=== PATIENT | female | born 1975 | race Hispanic/Latino ===

== ENCOUNTER → 2023-04-05 08:29 | Outpatient (CLI) | payer OTHER, SELFPAY ==
--- NOTE | ~2023-04-05 | US_ITS ---
Pelvic ultrasound. Clinical History: Menorrhagia Technique: Realtime transabdominal scanning of the pelvis was performed. Color flow Doppler and Doppl er spectral analysis were performed. Findings: The uterus is anteverted. The endometrial stripe has a thickness of 7 mm. No focal mass is identified. The right ovary measures 2.9 x 1.7 x 2.2 cm. No significant right ovarian or adnexal mass is seen. The left ovary measures 2.7 x 1.8 x 2.6 cm. No significant left ovarian or adnexal mass is seen. There is no evidence of free fluid in the cul de sac. Impression: Unremarkable pelvic ultrasound. Reviewed, dictated and finalized at location . EL TRAFFIC OFFICER Impression: Unremarkable pelvic ultrasound.
== END ==
PROVIDERS: PCP Nurse Practitioner; Visit Provider Nurse Practitioner
DX: N92.0 Excessive and frequent menstruation with regular cycle (principal)
CPT/HCPCS: 76856

== ENCOUNTER 2023-04-24 12:16 | Outpatient (CLI) | payer OTHER, SELFPAY ==
--- NOTE | ~2023-04-24 | MR_ITS ---
EXAMINATION: MR breast BI wo/w con INDICATION: Left nipple discharge TECHNIQUE: Axial VIBRANT pre and dynamic post contrast, Sagittal VIBRANT post contrast, Axial T2 STIR ASSET COMPARISON: None CONTRAST: Multihance, 10 cc BREAST COMPOSITION: Heterogeneous fibroglandular tissue FINDINGS: RIGHT BREAST: There is mild to moderate background parenchymal enhancement. No suspicious enhancement is present after contrast administration. No pathologically enlarged axillary or internal mammary ly mph nodes are identified. LEFT BREAST: There is mild to moderate background parenchymal enhancement. No suspicious enhancement is present after contrast administration. No pathologically enlarged axillary or internal mammary lym ph nodes are identified. IMPRESSION: No suspicious abnormality seen. BI-RADS Category 1: Negative Reviewed, dictated and finalized at location .
== END 2023-04-24 12:17 | disposition home or self-care (01) ==
PROVIDERS: PCP Nurse Practitioner; Visit Provider Surgery
DX: N64.52 Nipple discharge (principal); R92.343 Mammographic extreme density, bilateral breasts; Z98.890 Other specified postprocedural states
CPT/HCPCS: 77049; A9577; C8908

== ENCOUNTER 2023-05-07 15:26 | Outpatient (CLI) | payer OTHER, SELFPAY ==
[2023-05-07 15:46] LABS: Basophils Percent Auto 0.3 % (0.2-1.2); Eosinophils Absolute Auto 0.2 K/mm3 (0-0.3); Eosinophils Percent Auto 2.1 % (0-4.4); Hematocrit 38.5 % (37.0-47.0); Immature Granulocyte Absolute 0.02 K/mm3 (0.00-0.031); Immature Granulocyte Percent A 0.2 % (0-0.5); Lymphocytes Absolute Auto 1.69 K/mm3 (0.9-3.2); Lymphocytes Percent Auto 19.6 % (18.3-44.2); Mean Corpuscular HGB Conc 31.2 g/dl (32-36); Mean Corpuscular Hemoglobin 27.3 pg (26-34); Mean Corpuscular Volume 87.5 fl (80-100); Mean Platelet Volume 11.7 fl (7.4-10.4); Monocytes Absolute Auto 0.7 K/mm3 (0.1-0.6); Monocytes Percent Auto 7.7 % (2.6-8.5); Neutrophils Percent Auto 70.1 % (45.5-73.1); Platelet Count Result 264 k/mm3 (150-375); Red Cell Distribution Width 14.4 % (11.5-14.5); White Blood Count 8.6 K/mm3 (4.5-10.0)
[2023-05-07 16:48] LABS: Iron 57 ug/dL (37-170)
[2023-05-07 16:57] LABS: Percent Iron Saturation 13 % (20-50)
[2023-05-07 17:19] LABS: Alanine Aminotransferase 14 U/L (6-35); Albumin Level 4.4 g/dL (3.5-5.1); Alkaline Phosphatase 90 U/L (38-126); Anion Gap 7 mmol/L (8-16); Aspartate Amino Transferase 26 U/L (14-36); Bilirubin,Total 0.4 mg/dL (0.2-1.3); Blood Urea Nitrogen 15 mg/dL (7-17); Calcium 9.6 mg/dL (8.4-10.2); Carbon Dioxide 27 mmol/L (22-30); Chloride 103 mmol/L (98-107); Estimated Glomerular Filt Rate > 60; Glucose 109 mg/dL (65-110); Lactate Dehydrogenase 142 U/L (120-246); Potassium 3.8 mmol/L (3.4-5.0); Sodium 137 mmol/L (137-145)
[2023-05-07 17:24] LABS: Ferritin 6.05 ng/mL (6.24-137)
[2023-05-07 18:26] LABS: Folic Acid 19.1 ng/mL (2.76->20)
[2023-05-10 10:44] LABS: Methylmalonic Acid 492 nmol/L (87-318)
[2023-05-14 12:38] LABS: Soluble Transferrin Receptor 1.57 mg/L (0.76-1.76)
== END 2023-05-07 15:27 | disposition home or self-care (01) ==
LOC: ANHLAB 15:28
PROVIDERS: Nurse Practitioner Family; PCP Nurse Practitioner; Visit Provider Internal Medicine Hematology & Oncology
DX: D50.0 Iron deficiency anemia secondary to blood loss (chronic) (principal)
CPT/HCPCS: 36415; 80053; 82607; 82728; 82746; 83540; 83550; 83615; 83921; 84238; 85025

== ENCOUNTER 2023-09-10 10:34 | Outpatient (CLI) | payer OTHER, SELFPAY ==
[2023-09-10 10:54] LABS: Basophils Percent Auto 0.4 % (0.2-1.2); Eosinophils Absolute Auto 0.1 K/mm3 (0-0.3); Eosinophils Percent Auto 1.3 % (0-4.4); Hematocrit 37.6 % (37.0-47.0); Hemoglobin 11.7 g/dL (12.0-15.0); Immature Granulocyte Absolute 0.02 K/mm3 (0.00-0.031); Immature Granulocyte Percent A 0.2 % (0-0.5); Lymphocytes Absolute Auto 1.52 K/mm3 (0.9-3.2); Lymphocytes Percent Auto 16.5 % (18.3-44.2); Mean Corpuscular HGB Conc 31.1 g/dl (32-36); Mean Corpuscular Hemoglobin 28.7 pg (26-34); Mean Corpuscular Volume 92.2 fl (80-100); Mean Platelet Volume 11.4 fl (7.4-10.4); Monocytes Absolute Auto 0.8 K/mm3 (0.1-0.6); Monocytes Percent Auto 8.5 % (2.6-8.5); Neutrophils Absolute Auto 6.7 K/mm3 (1.3-6.7); Neutrophils Percent Auto 73.1 % (45.5-73.1); Platelet Count Result 235 k/mm3 (150-375); Red Blood Count 4.08 M/mm3 (4.2-5.4); Red Cell Distribution Width 13.2 % (11.5-14.5); White Blood Count 9.2 K/mm3 (4.5-10.0)
[2023-09-10 11:51] LABS: Anion Gap 6 mmol/L (4-12); Blood Urea Nitrogen 13 mg/dL (7-17); Carbon Dioxide 30 mmol/L (22-30); Chloride 102 mmol/L (98-107); Estimated Glomerular Filt Rate > 60; Glucose 86 mg/dL (65-110); Potassium 4.4 mmol/L (3.4-5.0); Sodium 138 mmol/L (137-145)
[2023-09-10 13:17] LABS: Iron 77 ug/dL (37-170)
[2023-09-10 13:32] LABS: Percent Iron Saturation 20 % (20-50)
== END 2023-09-10 10:35 | disposition home or self-care (01) ==
LOC: ANHLAB 10:36
PROVIDERS: PCP Nurse Practitioner; Visit Provider Nurse Practitioner Family
DX: D50.0 Iron deficiency anemia secondary to blood loss (chronic) (principal)
CPT/HCPCS: 36415; 80048; 82607; 82728; 83540; 83550; 85025

== ENCOUNTER 2024-01-20 09:59 | Outpatient (CLI) | payer OTHER, SELFPAY ==
[2024-01-20 10:28] LABS: Basophils Percent Auto 0.4 % (0.2-1.2); Eosinophils Absolute Auto 0.1 K/mm3 (0-0.3); Eosinophils Percent Auto 0.8 % (0-4.4); Hemoglobin 11.6 g/dL (12.0-15.0); Immature Granulocyte Absolute 0.04 K/mm3 (0.00-0.031); Immature Granulocyte Percent A 0.4 % (0-0.5); Lymphocytes Absolute Auto 1.51 K/mm3 (0.9-3.2); Lymphocytes Percent Auto 15.5 % (18.3-44.2); Mean Corpuscular HGB Conc 31.4 g/dl (32-36); Mean Corpuscular Hemoglobin 27.6 pg (26-34); Mean Corpuscular Volume 88.1 fl (80-100); Mean Platelet Volume 11.2 fl (7.4-10.4); Monocytes Absolute Auto 0.8 K/mm3 (0.1-0.6); Monocytes Percent Auto 8.5 % (2.6-8.5); Neutrophils Absolute Auto 7.3 K/mm3 (1.3-6.7); Neutrophils Percent Auto 74.4 % (45.5-73.1); Platelet Count Result 251 k/mm3 (150-375); Red Cell Distribution Width 13.4 % (11.5-14.5); White Blood Count 9.8 K/mm3 (4.5-10.0)
[2024-01-20 11:59] LABS: Iron 57 ug/dL (37-170)
[2024-01-20 12:03] LABS: Anion Gap 3 mmol/L (4-12); Blood Urea Nitrogen 13 mg/dL (7-17); Calcium 9.3 mg/dL (8.4-10.2); Carbon Dioxide 31 mmol/L (22-30); Chloride 104 mmol/L (98-107); Estimated Glomerular Filt Rate > 60; Glucose 94 mg/dL (65-110); Potassium 4.5 mmol/L (3.4-5.0); Sodium 138 mmol/L (137-145)
[2024-01-20 12:09] LABS: Percent Iron Saturation 15 % (20-50)
[2024-01-20 12:36] LABS: Ferritin 7.92 ng/mL (6.24-137)
[2024-01-20 13:12] LABS: Folic Acid 15.8 ng/mL (2.76->20)
== END 2024-01-20 10:00 | disposition home or self-care (01) ==
LOC: ANHLAB 10:00
PROVIDERS: PCP Nurse Practitioner; Visit Provider Internal Medicine Hematology & Oncology
DX: D50.0 Iron deficiency anemia secondary to blood loss (chronic) (principal)
CPT/HCPCS: 36415; 80048; 82607; 82728; 82746; 83540; 83550; 85025

== ENCOUNTER 2024-05-25 09:06 | Outpatient (CLI) | payer OTHER, SELFPAY ==
[2024-05-25 09:35] LABS: Hematocrit 33.9 % (37.0-47.0); Hemoglobin 10.8 g/dL (12.0-15.0); Mean Corpuscular HGB Conc 31.9 g/dl (32-36); Mean Corpuscular Volume 87.8 fl (80-100); Platelet Count Result 240 k/mm3 (150-375); Red Blood Count 3.86 M/mm3 (4.2-5.4); Red Cell Distribution Width 14.1 % (11.5-14.5); White Blood Count 7.5 K/mm3 (4.5-10.0)
--- OUTSIDE RECORDS SUMMARY | 2024-05-25 09:48 | XMS_ITS | Clinical Summary ---
Author Organization [facility] Jayro shaffer [facility] Address [address] [place] [address] [place] [address] Care Team Providers Care Security Test Engineer Name Role Phone Antonia Ahuja MD Primary Care Provider Allergies No known active allergies Medications sertraline (ZOLOFT) 100 mg tablet Take 150 mg by mouth daily. 12/21/2021 Active rosuvastatin (CRESTOR) 40 mg tablet Take 40 mg by mouth daily. Active traZODone (DESYREL) 50 mg tablet Take 50 mg by mouth daily at bedtime. 12/21/2021 Active multivitamin (DAILY-TANNER) tablet Take 1 Tablet by mouth daily. Active ferrous fumarate 89 mg (29 mg iron) Tablet Take 89 mg by mouth daily. Active CYANOCOBALAMIN, VITAMIN B-12, ORAL Take by mouth. Active progesterone micronized (PROMETRIUM) 100 mg Capsule Take 300 mg by mouth daily at bedtime. Active Active Problems Problem Noted Date Diagnosed Date Iron deficiency anemia 05/07/2023 Encounters Date Type Department Care Team Description 05/06/2024 External Device Data [facility] ABSTRACTION Provider, Abstract 04/29/2024 External Device Data [facility] ABSTRACTION Provider, Abstract 04/28/2024 External Device Data [facility] ABSTRACTION Provider, Abstract 04/25/2024 External Device Data [facility] ABSTRACTION Provider, Abstract 04/24/2024 External Device Data [facility] ABSTRACTION Provider, Abstract 04/22/2024 External Device Data [facility] ABSTRACTION Provider, Abstract 04/08/2024 External Device Data [facility] ABSTRACTION Provider, Abstract from Last 3 Months Family History Medical History Relation Name Comments No Known Problems Brother 1 No Known Problems Brother 2 No Known Problems Child 1 No Known Problems Child 2 Skin Cancer Father Diabetes Mother Hypertension Mother No Known Problems Sister 1 No Known Problems Sister 2 No Known Problems Sister 3 Relation Name Status Comments Brother 1 Alive Brother 2 Alive Child 1 Alive Child 2 Alive Father Alive Mother Alive Sister 1 Alive Sister 2 Alive Sister 3 Alive Social History Tobacco Use Types Packs/Day Years Used Date Smoking Tobacco: Never Smokeless Tobacco: Never Tobacco Cessation:Counseling Given: Not Answered Alcohol Use Standard Drinks/Week Comments Yes 0 (1 standard drink = 0.6 oz pur e alcohol) Socially Comments Unknown Sex and Gender Information Value Date Recorded Sex Assigned at Not on file Legal Sex Female 12:16 PM CDT Gender Identity Not on file Sexual Orientation Not on file Last Filed Vital Signs Vital Sign Reading Time Taken Comments Blood Pressure 121/73 01/24/2024 9:12 AM HUSBANDRY PERSON Pulse 66 01/24/2024 9:12 AM HUSBANDRY PERSON Temperature 36.6 C (97.8 F) 01/24/2024 9:12 AM HUSBANDRY PERSON Respiratory Rate 16 01/24/2024 9:12 AM HUSBANDRY PERSON Oxygen Saturation 97% 01/24/2024 9:12 AM HUSBANDRY PERSON Inhaled Oxygen Concentration - - Weight 56.7 kg (125 lb) 01/24/2024 9:12 AM HUSBANDRY PERSON Height 152.4 cm (5') 05/07/2023 2:43 PM CDT Body Mass Index 24.41 05/07/2023 2:43 PM CDT Plan of Treatment Upcoming Encounters Date Type Department Care Team (Late st Contact Info) Description 05/29/2024 9:30 AM CDT Office Visit [facility] Oncology and Hematology - [facility] [address] [facility] [address] [place] [address] Jovanny Prescott MD [address] [facility] [address] [place] [address] Health Maintenance Due Date Last Done Comments HEPATITIS B VACCINES (1 of 3 - 19+ 3-dose series) 08/19 HPV/Cotest (21-29) 09/10/1996 CERVICAL CANCER SCREENING 09/10/2005 HPV/Cotest (30-65) 09/10/2005 PAP SMEAR 09/10/2005 BREAST CANCER SCREENING 2015 COLORECTAL SCREENING 09/10/2020 Colorectal Cancer Screening 09/10/2020 FIT-DNA Q 3 years 09/10/2020 FIT/FOBT Q 1 year 09/10/2020 Flex Sig/CT Colonography Q 5 years 09/10/2020 INFLUENZA VACCINE (#1) 2023 12/05/2017 Preventative Visit- Commercial 02/19/2024 DTAP/TDAP/TD VACCINES (2 - Td or Tdap) 01/03/2028 [place] [address] Care Teams Security Test Engineer Relationship Specialty Start Date End Date Antonia Ahuja MD PCP - General Internal Medicine 05/07/23
--- OUTSIDE RECORDS SUMMARY | 2024-05-25 09:48 | XMS_ITS | Encounter Summary ---
Author Organization [facility] Address [address] [place] [address] Care Team Providers Care Contact Center Director Name Role Phone Unavailable Primary Care Provider Unavailabl e Prior Encounters Date Type Department Care Team Description 11/05/2023 Travel 11/05/2023 4:00 PM CDT Office Visit [facility] [address] [place] [phone] Lupis Daniel DMD 10/14/2023 11:00 AM CDT Office Visit [facility] [address] [place] [phone] Lupis Daniel DMD 10/09/2023 Travel 10/09/2023 1:00 PM CDT Office Visit [facility] [address] [place] [phone] Lupis Daniel, KAMRAN Encounter for dental examination and cleaning without abnormal findings (Primary Dx) 01/03/2022 2:00 PM CASE FINISHING MACHINE ADJUSTER Office Visit [facility] [address] [place] [address] Jo-Ann Hayes RDH 01/03/2022 2:00 PM CASE FINISHING MACHINE ADJUSTER Office Visit [facility] [address] [place] [phone] Hailee Lewis DDS 06/12/2021 1:00 PM CDT Office Visit [facility] [address] [place] [address] Toshia Wellington DMD 06/12/2021 1:00 PM CDT Office Visit [facility] [address] [place] [address] Jo-Ann Hayes, [facility] 12/12/2020 Travel 12/12/2020 1:00 PM CDT Office Visit [facility] [address] [place] [address] oTshia Wellington, DMD 12/05/2020 Travel 12/05/2020 1:00 PM CDT Office Visit [facility] [address] [place] [address] Toshia Wellington, DMD 12/05/2020 1:00 PM CDT Office Visit [facility] [address] [place] [address] [address] 03/09/2019 Converted CPS Chart Documents [facility] [address] [place] [address] <No scans attached> 03/09/2019 Converted 13x Documents [facility] [address] [place] [address] <No scans attached> Last Filed Vital Signs Vital Sign Reading Time Taken Comments Blood Pressure 114/72 10/14/2023 11:13 AM CDT Pulse 63 01/03/2022 2:24 PM CASE FINISHING MACHINE ADJUSTER Temperature 36.1 C (97 F) 12/05/2020 1:03 PM CDT Respiratory Rate - - Oxygen Saturation - - Inhaled Oxygen Concentration - - Weight - - Height - - Body Mass Index - - Plan of Treatment Not on file Procedures Procedure Name Priority Date/Time Associated Diagnosis Comments 3 CORE BUILDUP, INCLUDING ANY PINS WHEN REQUIRED Routine 11/05/2023 4:00 PM CDT 2 CORE BUILDUP, INCLUDING ANY PINS WHEN REQUIRED Routine 11/05/2023 4:00 PM CDT 1 O RESIN-BASED COMPOSITE - ONE SURFACE, POSTERIOR Routine 11/05/2023 4:00 PM CDT 14 MO RESIN-BASED COMPOSITE - TWO SURFACES, POSTERIOR Routine 10/14/2023 11:00 AM CDT NEW PATIENT TOPICAL APPLICATION OF FLUORIDE VARNISH Routine 10/09/2023 1:00 PM CDT ORAL HYGIENE INSTRUCTIONS Routine 2023 1:00 PM CDT PROPHYLAXIS - ADULT Routine 10/09/2023 1 :00 PM CDT Encounter for dental examination and cleaning without abnormal findings INTRAORAL PHOTO Routine 10/09/2023 1:00 PM CDT INTRAORAL PHOTO Routine 10/09/2023 1:00 PM CDT INTRAORAL PHOTO Routine 10/09/2023 1:00 PM CDT PANORAMIC RADIOGRAPHIC IMAGE Routine 10/09/2023 1:00 PM CDT COMPREHENSIVE ORAL EVALUATION - NEW OR ESTABLISHED PATIENT Routine 10/09/2023 1:00 PM CDT Encounter for dental examination and cleaning without abnormal findings INTRAORAL PHOTO Routine 10/09/2023 1:00 PM CDT INTRAORAL - COMPREHENSIVE SERIES OF RADIOGRAPHIC IMAGES Routine 10/09/2023 1:00 PM CDT 3 ROOT CANAL Routine 10/09/2023 12:00 AM CDT PROPHYLAXIS - ADULT Routine 01/03/2022 2 :00 PM CASE FINISHING MACHINE ADJUSTER TOPICAL APPLICATION OF FLUORIDE VARNISH Routine 01/03/2022 2:00 PM CASE FINISHING MACHINE ADJUSTER ORAL HYGIENE INSTRUCTIONS Routine 2021 2:00 PM CASE FINISHING MACHINE ADJUSTER PERIODIC ORAL EVALUATION - ESTABLISHED PATIENT Routine 01/03/2022 2:00 PM CASE FINISHING MACHINE ADJUSTER 1 LO AMALGAM FILLING Routine 01/03/2022 12:00 AM CASE FINISHING MACHINE ADJUSTER 2 LO AMALGAM FILLING Routine 01/03/2022 12:00 AM CASE FINISHING MACHINE ADJUSTER 7 L AMALGAM FILLING Routine 01/03/2022 1 2:00 AM CASE FINISHING MACHINE ADJUSTER 14 LO AMALGAM FILLING Routine 01/03/2022 12:00 AM CASE FINISHING MACHINE ADJUSTER 16 O AMALGAM FILLING Routine 01/03/2022 12:00 AM CASE FINISHING MACHINE ADJUSTER 32 O AMALGAM FILLING Routine 01/03/2022 12:00 AM CASE FINISHING MACHINE ADJUSTER 31 ISSA AMALGAM FILLING Routine 01/03/2022 12:00 AM CASE FINISHING MACHINE ADJUSTER 28 O AMALGAM FILLING Routine 01/03/2022 12:00 AM CASE FINISHING MACHINE ADJUSTER 5 MO AMALGAM FILLING Routine 01/03/2022 12:00 AM CASE FINISHING MACHINE ADJUSTER 18 ISSA AMALGAM FILLING Routine 01/03/2022 12:00 AM CASE FINISHING MACHINE ADJUSTER 19 ISSA AMALGAM FILLING Routine 01/03/2022 12:00 AM CASE FINISHING MACHINE ADJUSTER PERIODIC ORAL EVALUATION - ESTABLISHED PATIENT Routine 06/12/2021 1:00 PM CDT BITEWINGS - FOUR RADIOGRAPHIC IMAGES Routine 06/12/2021 1:00 PM CDT TOPICAL APPLICATION OF FLUORIDE VARNISH Routine 06/12/2021 1:00 PM CDT ORAL HYGIENE INSTRUCTIONS Routine 2021 1:00 PM CDT PROPHYLAXIS - ADULT Routine 06/12/2021 1 :00 PM CDT 15 CERECFIRED CROWNPOST Routine 12/13/19 1:00 PM CDT PERIODIC ORAL EVALUATION - ESTABLISHED PATIENT Routine 12/05/2020 1:00 PM CDT TOPICAL APPLICATION OF FLUORIDE VARNISH Routine 12/05/2020 1:00 PM CDT ORAL HYGIENE INSTRUCTIONS Routine 2020 1:00 PM CDT PROPHYLAXIS - ADULT Routine 12/05/2020 1:00 PM CDT INTRAORAL - COMPREHENSIVE SERIES OF RADIOGRAPHIC IMAGES Routine 06/07/2020 2:00 AM CDT COMPREHENSIVE ORAL EVALUATION - NEW OR ESTABLISHED PATIENT Routine 06/07/2020 2:00 AM CDT INTRAORAL PHOTO Routine 06/07/2020 2:00 AM CDT INTRAORAL PHOTO Routine 06/07/2020 2:00 AM CDT INTRAORAL PHOTO Routine 06/07/2020 2:00 AM CDT INTRAORAL PHOTO Routine 06/07/2020 2:00 AM CDT SCALING IN PRESENCE OF GENERALIZED MODERATE OR SEVERE GINGIVAL INFLAMMATION Routine 06/07/2020 2:00 AM CDT ORAL HYGIENE INSTRUCTIONS Routine 2020 2:00 AM CDT TOPICAL APPLICATION OF FLUORIDE VARNISH Routine 06/07/2020 2:00 AM CDT 30 EXTRACTION, ERUPTED TOOTH REQUIRING REMOVAL OF BONE AND/OR SECTIONING OF TOOTH Routine 12/24/2019 2:00 AM CASE FINISHING MACHINE ADJUSTER 30 LIMITED ORAL EVALUATION - PROBLEM FOCUSED Routine 12/09/2019 2:00 AM CDT PANORAMIC RADIOGRAPHIC IMAGE Routine 12/09/2019 2:00 AM CDT ADDITIONAL X-RAY Routine 12/09/2019 2:00 AM CDT SINGLE X-RAY Routine 12/09/2019 2:00 AM CDT Visit Diagnoses Diagnosis Start Date Encounter for dental examination and cleaning without abnormal findings 10/09/2023 Insurance * Guarantor: Denia Russell Account Type Relation to Patient Date of Phone Billing Address Personal/Family Self 1975 [id number] [facility] [address]
--- OUTSIDE RECORDS SUMMARY | 2024-05-25 09:48 | XMS_ITS | Clinical Summary ---
Author Organization [facility] Care Team Providers Care Buhr Mill Operator Name Role Phone Unavailable Primary Care Provider Unavailabl e Social History Tobacco Use Types Packs/Day Years Used Date Smoking Tobacco: Never Assessed Comments Unknown Sex and Gender Information Value Date Recorded Sex Assigned at Not on file Legal Sex Female 9:00 AM PAIN MANAGEMENT NURSE Gender Identity Not on file Sexual Orientation Not on file Plan of Treatment Health Maintenance Due Date Last Done Comments Hepatitis C Virus (HCV) Screening 1975 Hepatitis B Immunization (1 of 3 - 19+ 3-dose series) 09/10/1994 Pap Smear 09/10/1996 Cervical Cancer Screening (CCS) 09/10/2005 HPV/Cotest 09/10/2005 Discussion re Starting/Frequ ency of Mammograms 2015 Colonoscopy 09/10/2020 Colorectal Cancer Screening 09/10/2020 Influenza Immunization (#1) 2023 12/05/2017 SARS-COV-2 Immunization ( season) 2023 Respiratory Syncytial Virus (RSV) Immunization (Adult) (1 - 1-dose 75+ series) 09/10/2050 DTaP/Tdap/Td Immunization Discontinued 01/02/2018 TdaP Immunization Completed 01/02/2018 Meningococcal Immunization (ACWY) Aged Out No longer eligible based on patient's age to complete this topic Pneumococcal Immunization Combined Aged Out No longer eligible b ased on patient's age to complete this topic Rotavirus Immunization Aged Out No lo nger eligible based on patient's age to complete this topic
--- OUTSIDE RECORDS SUMMARY | 2024-05-25 09:48 | XMS_ITS | Clinical Summary ---
Author Organization [facility] Address [address] [place] [address] Care Team Providers Care Thermostat Machine Tender Name Role Phone Unavailable Primary Care Provider Unavailabl e Allergies No known active allergies Medications sertraline (ZOLOFT) 25 mg tablet Take 25 mg by mouth 1 (one) time each day. 03/24/2021 Active traZODone (DESYREL) 50 mg tablet Take 50 mg by mouth every night. 12/21/2021 Active ergocalciferol (VITAMIN D-2) 1,250 mcg (50,000 unit) capsule TAKE 1 CAPSULE BY MOUTH WEEKLY FOR 8 WEEKS 12/05/2021 Active sertraline (ZOLOFT) 100 mg tablet Take 100 mg by mouth every night. 12/21/2021 Active sertraline (ZOLOFT) 50 mg tablet Take 50 mg by mouth every night. 11/28/2021 Active Active Problems No known active problems Social History Tobacco Use Types Packs/Day Years Used Date Smoking Tobacco: Never Assessed Comments Unknown Sex and Gender Information Value Date Recorded Sex Assigned at Not on file Legal Sex Female 9:02 PM PDT Gender Identity Not on file Sexual Orientation Not on file Last Filed Vital Signs Vital Sign Reading Time Taken Comments Blood Pressure 114/72 10/14/2023 11:13 AM CDT Pulse 63 01/03/2022 2:24 PM LITHOGRAPHIC STRIPPER Temperature 36.1 C (97 F) 12/05/2020 1:03 PM CDT Respiratory Rate - - Oxygen Saturation - - Inhaled Oxygen Concentration - - Weight - - Height - - Body Mass Index - - Plan of Treatment Health Maintenance Due Date Last Done Comments Dental Oral Exam 04/11/2024 10/09/2023, , 06/12/2021, Additional history exists Dental Prophylaxis 04/11/2024 10/09/2023, 1 03/05/2021, 06/12/2021, Additional history exists Dental X-Ray: Bitewings 04/11/2024 10/09/2023 Dental X-Ray: Full Mouth 10/09/2026 024, 07/10/2020, 06/07/2020 Dental X-Ray: Panoramic 10/09/2026 10/09/2023, 12/08 Meningococcal B Vaccine Aged Out No l onger eligible based on patient's age to complete this topic Procedures Procedure Name Priority Date/Time Associated Diagnosis Comments PANORAMIC RADIOGRAPHIC IMAGE Routine 10/09/2023 1:00 PM CDT PROPHYLAXIS - ADULT Routine 10/09/2023 1 :00 PM CDT Encounter for dental examination and cleaning without abnormal findings INTRAORAL - COMPREHENSIVE SERIES OF RADIOGRAPHIC IMAGES Routine 10/09/2023 1:00 PM CDT COMPREHENSIVE ORAL EVALUATION - NEW OR ESTABLISHED PATIENT Routine 10/09/2023 1:00 PM CDT Encounter for dental examination and cleaning without abnormal findings from Last 3 Months or Most Recently Relevant to Health Maintenance Insurance [facility] [address] [facility] [address]
[2024-05-25 11:40] LABS: Iron 38 ug/dL (37-170)
[2024-05-25 11:52] LABS: Percent Iron Saturation 9 % (20-50)
[2024-05-25 12:45] LABS: Folic Acid > 20.0 ng/mL (2.76->20)
== END 2024-05-25 09:07 | disposition home or self-care (01) ==
LOC: ANHLAB 09:08
PROVIDERS: Visit Provider Internal Medicine Hematology & Oncology
DX: D64.9 Anemia, unspecified (principal)
CPT/HCPCS: 36415; 82607; 82728; 82746; 83540; 83550; 85027